=== PATIENT | male | born 1990 | race Caucasian/White ===

== ENCOUNTER 2017-02-10 04:00 | Emergency (ER) | payer BC, MEDICAID ==
[~2017-02-10] VITALS: Ht 180.3 cm; Wt 66.4 kg
[~2017-02-10 04:00] MED LIST: ALBU8.5H3 INH; NONE PER PT
[2017-02-10 04:53] VITALS: BP 123/75
== END 2017-02-10 04:55 | disposition home or self-care (01) ==
LOC: ED 04:49
DX: K02.9 Dental caries, unspecified (principal); J45.909 Unspecified asthma, uncomplicated
CPT/HCPCS: 99283

== ENCOUNTER 2019-12-20 00:33 | Emergency (ER) | payer BC ==
[~2019-12-20] VITALS: Ht 180.3 cm; Wt 63.5 kg
[~2019-12-20 00:33] MED LIST changes: -ALBU8.5H3 INH; +ALBU8.5H8 INH
[2019-12-20 00:41] VITALS: BP 139/96
[2019-12-20] MEDS ORDERED: ACETAMINOPHEN 500 MG TABLET ONE (01:16)
--- NOTE | 2019-12-20 01:21 | NUR ---
PT MEDICATED PER EMAR. 5 RIGHTS ADDRESSED. AWAITING XRAY READ AT THIS TIME. PT REPORTS RELIEF FROM PAIN AFTER BONE WAX
[2019-12-20] MEDS ORDERED: ACETAMINOPHEN 500 MG TABLET PO ONE (01:30)
--- NOTE | 2019-12-20 01:57 | NUR ---
PATIENT WALKED OUT OF ROOM AND WLKED OUT AMBULANCE BAY WITH FRIEND.
== END 2019-12-20 01:59 | disposition left against medical advice (07) ==
LOC: ED 01:18
DX: K08.89 Other specified disorders of teeth and supporting structures (principal); M79.644 Pain in right finger(s); J45.909 Unspecified asthma, uncomplicated; F17.200 Nicotine dependence, unspecified, uncomplicated
CPT/HCPCS: 99283